=== PATIENT | female | born 1970 | race Caucasian/White ===

== ENCOUNTER → 2016-11-29 | Outpatient (CLI) | payer MEDICAID ==
[~2016-11-29] MED LIST: AMBIEN 10MG TAB10 MG PO; BUSPAR 10MG TAB10 MG PO; COUMADIN 5MG TAB5 MG PO; FLEXERIL10 MG PO; KEFLEX 500MG.500 MG PO; KLONOPIN1 MG PO; LORTAB 5/500 501 TAB PO; LOVENOX IJ; NEURONTIN800 MG PO; NEXIUM40 MG PO; PAXIL20 MG PO; ULTRACET 325 MG1 TAB PO; ULTRAM 50 MG TA50 MG PO; VIBRAMYCIN 100100 MG PO; VOLTAREN75 MG PO; WARFARIN SOD5 MG PO; ZANAFLEX4 M2 PO; ZANAFLEX4 MG NG
== END ==
LOC: COP 12:30
DX: D68.2 Hereditary deficiency of other clotting factors (principal); Z86.711 Personal history of pulmonary embolism; Z79.01 Long term (current) use of anticoagulants; Z51.81 Encounter for therapeutic drug level monitoring

== ENCOUNTER 2016-11-30 13:40 | Outpatient (CLI) | payer MEDICAID ==
[~2016-11-30 13:40] MED LIST changes: -KLONOPIN1 MG PO
[2016-11-30 13:50] VITALS: BP 103/65
[2016-11-30] MEDS ORDERED: KLONOPIN1 MG PO (14:00)
== END 2016-11-30 14:02 | disposition home or self-care (01) ==
LOC: COP 13:40
DX: D68.2 Hereditary deficiency of other clotting factors (principal); Z86.711 Personal history of pulmonary embolism; Z79.01 Long term (current) use of anticoagulants; Z51.81 Encounter for therapeutic drug level monitoring

== ENCOUNTER 2016-12-01 14:28 | Outpatient (CLI) | payer MEDICAID ==
[~2016-12-01 14:28] MED LIST changes: +KLONOPIN1 MG PO
[2016-12-01 14:40] VITALS: BP 101/64
== END 2016-12-01 14:40 | disposition home or self-care (01) ==
LOC: COP 14:28
DX: D68.2 Hereditary deficiency of other clotting factors (principal); Z86.711 Personal history of pulmonary embolism; Z79.01 Long term (current) use of anticoagulants; Z51.81 Encounter for therapeutic drug level monitoring
CPT/HCPCS: G0463

== ENCOUNTER 2016-12-02 13:14 | Outpatient (CLI) | payer MEDICAID ==
[2016-12-02 13:29] VITALS: BP 108/68
== END 2016-12-02 13:37 | disposition home or self-care (01) ==
LOC: COP 13:14
DX: D68.2 Hereditary deficiency of other clotting factors (principal); Z86.711 Personal history of pulmonary embolism; Z79.01 Long term (current) use of anticoagulants; Z51.81 Encounter for therapeutic drug level monitoring

== ENCOUNTER → 2016-12-04 | Outpatient (CLI) | payer MEDICAID | LOC: COP 06:24 | DX: D68.2 Hereditary deficiency of other clotting factors (principal); Z86.711 Personal history of pulmonary embolism; Z79.01 Long term (current) use of anticoagulants; Z51.81 Encounter for therapeutic drug level monitoring ==

== ENCOUNTER 2016-12-06 13:38 | Outpatient (CLI) | payer MEDICAID | END 2016-12-06 15:48 | LOC: ACC 13:38 | DX: D68.2 Hereditary deficiency of other clotting factors (principal); Z86.711 Personal history of pulmonary embolism; Z79.01 Long term (current) use of anticoagulants; Z51.81 Encounter for therapeutic drug level monitoring | CPT/HCPCS: G0463 ==